=== PATIENT | male | born 1960 | race Caucasian/White ===

== ENCOUNTER 2021-06-17 16:49 | Emergency (ER) | payer BC, SELFPAY ==
[2021-06-17 16:57] VITALS: BP 178/92; PULSE 84; RESP 16; TEMP 37.2; O2SAT 99
--- NOTE | 2021-06-17 17:44 | ED.GENADULT ---
HPI - General Adult General Chief complaint: Skin/Abscess/Foreign Body Stated complaint: left side facial swelling Time Seen by Provider: 06/17/21 17:33 Source: patient and RN notes reviewed Mode of arrival: ambulatory Limitations: no limitations History of Present Illness HPI narrative: Patient presents today complaining of 1.5 to 2-hour swelling of his left lower salivary gland. Denies much pain. States this has happened to him a few times in the past and he has received some steroids to help with the symptoms. No history of salivary gland stones. No recent illness. States he normally sucks on sour candies when this happens as well. MD complaint: Salivary gland swelling Related Data Allergies Allergy/AdvReac Type Severity Reaction Status Date / Time No Known Allergies Allergy Mild Verified 06/17/21 17:24 Review of Systems Review of Systems: CONSTITUTIONAL: Denies body aches, fever, chills, or sweats. EYES: Denies visual changes, redness, or discharge. ENT: Denies rhinorrhea, congestion, sore throat, or otalgia.+ Salivary gland swelling CARDIOVASCULAR: Denies chest pain, palpitations, or edema. RESPIRATORY: Denies cough or dyspnea. GASTROINTESTINAL: Denies abdominal pain, nausea, vomiting, or diarrhea. GENITOURINARY: Denies dysuria or hematuria. SKIN: Denies rash, itching, or wounds. MUSCULOSKELETAL: Denies back pain, joint pain, or myalgia. NEUROLOGIC: Denies headache, numbness, tingling, or weakness. PSYCH: Denies depression or anxiety. [facility] Family History Family History Father Family history of coronary artery disease Other Family history of arthritis Social History Social History Alcohol intake: never Comments At time of signature, I have reviewed and agree with nursing past medical, surgical, social and family history unless otherwise noted. Please see nursing chart for further information. There is no relevant family history pertinent to the presenting complaint Exam Narrative: GENERAL: Well-appearing, well-nourished, and in no acute distress. HEAD: Normocephalic, atraumatic. EYES: EOMI. No redness or drainage. Conjunctivae normal. ENT: Mucous membranes pink and moist. Mild left parotid gland swelling. No firmness, erythema noted. No stones felt within the mouth. No sublingual tenderness. NECK: Normal AROM. Supple. No lymphadenopathy. CHEST: No respiratory distress. EXTREMITIES: Normal range of motion. No edema. SKIN: Warm, dry, no rash. Capillary refill normal. Normal skin turgor. NEURO: No focal deficits. Alert and oriented x3. Gait steady. PSYCH: Normal affect. No signs of depression or anxiety. Course Vital Signs Vital signs: Vital Signs Temperature 98.9 F 06/17/21 16:57 Pulse Rate 84 06/17/21 16:57 Respiratory Rate 16 06/17/21 16:57 Blood Pressure 178/92 H 06/17/21 16:57 Pulse Oximetry 99 06/17/21 16:57 Temperature 98.9 F 06/17/21 16:57 Pulse Rate 84 06/17/21 16:57 Respiratory Rate 16 06/17/21 16:57 Blood Pressure 178/92 H 06/17/21 16:57 Pulse Oximetry 99 06/17/21 16:57 Reviewed. Pt has been instructed to follow up with his PCP regarding his elevated blood pressure today. Medical Decision Making Differential Diagnosis Differential Diagnosis: Sialolithiasis, sialoadenitis, mumps Vital Signs Vital Signs: Vital Signs Temperature 98.9 F 06/17/21 16:57 Pulse Rate 84 06/17/21 16:57 Respiratory Rate 16 06/17/21 16:57 Blood Pressure 178/92 H 06/17/21 16:57 Pulse Oximetry 99 06/17/21 16:57 Temperature 98.9 F 06/17/21 16:57 Pulse Rate 84 06/17/21 16:57 Respiratory Rate 16 06/17/21 16:57 Blood Pressure 178/92 H 06/17/21 16:57 Pulse Oximetry 99 06/17/21 16:57 Critical Care Time Critical Care Time Critical Care Time: No Discharge Plan Discharge Clinical Impression: Sialadenitis
== END 2021-06-17 17:45 | disposition home or self-care (01) ==
PROVIDERS: Emergency Provider Nurse Practitioner
DX: K11.20 Sialoadenitis, unspecified (principal)
CPT/HCPCS: 99213; G0463

== ENCOUNTER 2022-01-26 16:19 | Observation (INO) | payer BC, SELFPAY ==
[2022-01-26] VITALS (20 sets, daily range): BP systolic 104–151; BP diastolic 74–98; PULSE 56–65; RESP 14–18; TEMP 36.4–36.7; O2SAT 96–100; BMI 29.8
--- NOTE | ~2022-01-26 | XR_ITS ---
EXAMINATION: XR chest 1V portable DATE: 01/26/2022 16:42 INDICATION: Dizziness, nausea and vomiting TECHNIQUE: frontal view of the chest was obtained. COMPARISON: None FINDINGS: The lungs are clear with no focal airspace opacities, pulmonary edema, pleural effusion or pneumothor ax. The cardiomediastinal silhouette is normal. Visualized bones and soft tissues are unremarkable. IMPRESSION: 1. No acute cardiopulmonary disease. Reviewed, dictated and finalized at location A.
--- NOTE | ~2022-01-26 | CT_ITS ---
EXAMINATION: CT brain wo con DATE: 01/26/2022 16:42 INDICATION: Dizziness and nausea. Weakness. TECHNIQUE: Computed tomography (CT) of the head was performed without intravenous contrast. Sagittal and coronal reconstructions were performed. The mA was adjusted according to patient size. Iterative reconstruction technique was employed. The dose-length product was 605.33 mGy-cm. COMPARISON: None FINDINGS: No acute intracranial hemorrhage, acute infarction or abnormal extra axial fluid collection. Symmetri c prominence of the sulci consistent with mild age-appropriate diffuse cerebral volume loss. Ventricl es are normal and symmetric. No mass/mass effect. The orbits and mastoid air cells are normal. Mild m ucoperiosteal thickening the bilateral ethmoid and sphenoid sinuses. IMPRESSION: 1. No acute intracranial process. Reviewed, dictated and finalized at location A.
--- NOTE | 2022-01-26 16:24 | ECG_ITS ---
Measurements Intervals [place] Rate: 60 P: 25 AL: 147 QRS: -21 QRSD: 103 T: 6 QT: 427 QTc: 428 Interpretive Statements SINUS RHYTHM NORMAL ECG NO PREVIOUS ECG AVAILABLE FOR COMPARISON Electronically Signed On 01-27-2022 15:54:56 CDT by Kamaljit Carpenter M.D.
[2022-01-26] MEDS: MECLIZINE HCL 25 MG TABLET PO (16:31)
[2022-01-26] MEDS: SODIUM CHLORIDE 0.9% IV 1,000 ML 999 ML IV CONT ×2 (16:31→17:07)
--- NOTE | 2022-01-26 16:32 | ED.WEAKNESS ---
HPI - Weakness General Chief complaint: Weakness Stated complaint: diaphoretic, N/V Time Seen by Provider: 01/26/22 16:24 Source: RN notes reviewed History of Present Illness HPI Narrative: Patient presents emergency department via EMS for dizziness. 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 He states that he had no unilateral numbness or weakness he denies any vision changes chest pain shortness of breath abdominal pain or diarrhea. States that dizziness is worse with moving his head Related Data Home Medications Medication Instructions Recorded Confirmed No Home Medications 01/26/22 01/26/22 Allergies Allergy/AdvReac Type Severity Reaction Status Date / Time No Known Allergies Allergy Mild Verified 01/26/22 16:25 Review of Systems Review of Systems: Gen.: Denies fevers or chills Eyes: Denies eye pain or visual change ENT: Denies congestion Respiratory: Denies shortness of breath or cough CV: Denies chest pain or palpitations GI: Denies abdominal pain reports nausea and vomiting Musculoskeletal: Denies back pain or muscle pain Neuro: Reports dizziness Skin: Denies rash Except as documented, all other systems reviewed and negative [facility] Past Medical History Medical History (Updated 01/26/22 @ 18:45 by Boris Patel DO) Patient denies significant medical history Family History Family History Father Family history of coronary artery disease Other Family history of arthritis Social History Social History (Updated 01/26/22 @ 17:49 by Boris Patel DO) Smoking status: Never smoker Alcohol intake: never Exam Narrative: APPEARANCE: No acute distress, nontoxic, resting in bed HEENT: Normocephalic, atraumatic, OMM, TMs clear bilaterally EYES: PERRL, EOMI NECK: Supple, nontender, full range of motion without pain, no meningismus RESPIRATORY: No respiratory distress, clear to auscultation bilaterally with no rhonchi wheezing or rales CARDIOVASCULAR: RRR s murmur ABDOMINAL: Soft, nontender, nondistended MUSCULOSKELETAL: Moves all extremities. No clubbing, cyanosis or edema. NEURO: A and O ?3, following commands, speech normal, cranial nerves II through XII grossly intact,muscle strength 5 out of 5 bilateral upper and lower extremities, no pronator drift SKIN:: Warm, dry. Normal Color PSYCHIATRIC: Normal affect/mood Course Course Emergency Course: Patient is progressively felt better in the emergency department states that this time he has no dizziness with sitting dizziness only with turning his head to the left patient was able to get up and ambulate with improvement denies any pain at this time no chest pain or shortness of breath abdomen remains soft and nontender. Discussed with Dr. Marques presentation work-up agrees with admission to [facility] Discussed with patient and family results of workup and diagnosis. Discussed need for admission. Patient and family understand and agree to current treatment plan Vital Signs Vital signs: Vital Signs Temperature 97.6 F 01/26/22 16:17 Pulse Rate 62 01/26/22 16:17 Respiratory Rate 17 01/26/22 16:17 Blood Pressure 125/77 01/26/22 16:17 Pulse Oximetry 98 01/26/22 16:17 Oxygen Delivery Room Air 01/26/22 16:17 Temperature 98.0 F 01/26/22 17:36 Pulse Rate 62 01/26/22 18:30 Respiratory Rate 17 01/26/22 18:30 Blood Pressure 138/91 H 01/26/22 18:28 Pulse Oximetry 99 01/26/22 17:15 Oxygen Delivery Room Air 01/26/22 16:17 MDM - Weakness
[2022-01-26 16:34] LABS: Basophils Percent Auto 0.3 % (0.2-1.2); Eosinophils Absolute Auto 0.1 K/mm3 (0-0.3); Eosinophils Percent Auto 0.4 % (0-4.4); Hematocrit 44.4 % (42.0-52.0); Hemoglobin 14.8 g/dL (14.0-18.0); Immature Granulocyte Absolute 0.07 K/mm3 (0.00-0.031); Immature Granulocyte Percent A 0.5 % (0-0.5); Lymphocytes Absolute Auto 2.58 K/mm3 (0.9-3.2); Lymphocytes Percent Auto 18.7 % (18.3-44.2); Mean Corpuscular HGB Conc 33.3 g/dl (32-36); Mean Corpuscular Hemoglobin 29.4 pg (26-34); Mean Corpuscular Volume 88.1 fl (80-100); Mean Platelet Volume 9.9 fl (7.4-10.4); Monocytes Absolute Auto 1.1 K/mm3 (0.1-0.6); Monocytes Percent Auto 8.2 % (2.6-8.5); Neutrophils Percent Auto 71.9 % (45.5-73.1); Platelet Count Result 369 k/mm3 (150-375); Red Blood Count 5.04 M/mm3 (4.6-6.20); Red Cell Distribution Width 13.8 % (11.5-14.5); White Blood Count 13.8 K/mm3 (4.5-10.0)
[2022-01-26 16:45] LABS: Prothrombin Time 12.5 Seconds (11.1-14.7)
[2022-01-26 16:46] LABS: Partial Thromboplastin Time 20.6 SECONDS (22.3-36.8)
[2022-01-26 16:47] LABS: Alanine Aminotransferase 24 U/L (6-50); Albumin Level 4.5 g/dL (3.5-5.1); Alkaline Phosphatase 72 U/L (38-126); Anion Gap 14 mmol/L (8-16); Aspartate Amino Transferase 26 U/L (17-59); Bilirubin,Total 0.6 mg/dL (0.2-1.3); Blood Urea Nitrogen 11 mg/dL (9-20); Calcium 9.2 mg/dL (8.4-10.2); Carbon Dioxide 22 mmol/L (22-30); Chloride 101 mmol/L (98-107); Creatine Kinase 65 U/L (55-170); Estimated Glomerular Filt Rate > 60; Glucose 155 mg/dL (65-110); Lipase 51 U/L (23-300); Potassium 3.2 mmol/L (3.4-5.0); Sodium 137 mmol/L (137-145)
[2022-01-26 16:49] LABS: Lactic Acid Reflex 5.2 mmol/L (0.7-2.0)
[2022-01-26 16:57] LABS: Troponin I < 0.012 ng/mL (0.000-0.034)
[2022-01-26 17:50] LABS: Lactic Acid Reflex 3.4 mmol/L (0.7-2.0)
[2022-01-26 17:52] LABS: SARS-CoV-2 RNA PCR Negative
[2022-01-26 18:29] LABS: Appearance Urine Clear (Clear); Bilirubin Urine Negative (Negative); Color Urine Yellow (Yellow); Glucose Urine UA Negative (Negative); Ketones Urine Negative (Negative); Leukocyte Esterase Ur Negative LEU/UL (Negative); Nitrate Urine Negative (Negative); Protein Urine Trace mg/dL (Negative); Specific Grav Ur 1.025 (1.001-1.035); Urobilinogen Urine 0.2 mg/dL (<2.0)
[2022-01-26 18:31] LABS: Add Urine Microscopic? YES; Blood Urine Trace-Intact (Negative)
[2022-01-26 18:33] LABS: Mucus Urine Few /lpf; Squamous Epithelial Cell Urine Rare /hpf (Few); WBC Urine 0-3 /hpf
[2022-01-26] MEDS: POTASSIUM CHLORIDE 20 MEQ TABLET PO ×2 (18:37→22:06)
[2022-01-26 19:32] LABS: Reflex Lactic Acid Yes or No Add Lactic
[2022-01-26] MEDS: SODIUM CHLORIDE 0.9% IV 1,000 ML 125 ML IV CONT (19:55)
[2022-01-26 20:02] LABS: Lactic Acid 1.4 mmol/L (0.7-2.0)
--- NOTE | 2022-01-26 21:47 | ADMGEN ---
This patient, Markel Sexton, was admitted to [facility] Surg Room 301-01. Patient/family oriented to hospital policies and general routines including ID bracelet, bed and alarms, visiting hours, pain management, procedures, bathroom and other care routines, personal items, smoking policy, room service/diet, and visiting hours. Information on how to activate the Rapid Response Team has been discussed. Patient/Family are encouraged to report perceived risks to care and to ask questions if they do not understand what they are told or what they should do.
--- NOTE | 2022-01-26 21:49 | PM.IMHP ---
H&P: HPI History of Present Illness Date/Time: 01/26/22 21:49 Chief Complaint: Dizziness Narrative: Greater than 30 minutes spent reviewing chart, evaluating, treating, and counseling patient. Anticipate less than 48 hour admission, will admit under observation. 61-year-old male with no significant past medical history presents with dizziness of sudden onset today in the afternoon. 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 He was cleaning some dust on the ceiling and then turned around when all the sudden he states he felt the room spinning. Was severe for a couple of minutes and then calmed down, however was still persistent. Patient was nauseous with episode and eventually vomited once. Patient reports he had a 32 oz regular soda and Powerade for lunch. No other fluid intake. Prior to nausea vomiting episode, patient had normal appetite. Denies blurry vision, ringing in ears, trouble hearing, acute weakness and any of his extremities. Patient denies fevers/chills, shortness of breath, chest pain, palpitations, diarrhea/constipation, trouble urinating, hematuria/dysuria. Patient reports improvement in nausea/vomiting. He reports dizziness only when standing up from lying down, which has improved since arrival to ED. In the ED, vital stable. Labs remarkable for white count of 13.8, potassium of 3.2, lactic acid of 5.2, glucose 155. UA negative for ketones. CT head negative for acute intracranial pathology. Patient received 2 L normal saline bolus in the ED, as well as 20 mEq of potassium. Patient also received 25 mg of meclizine. Review of Systems Review of Systems: Ten point ROS reviewed, negative unless otherwise specified per HPI. [facility] Past Medical History Medical History (Updated 01/26/22 @ 22:03 by Neeraj Garza DO) Patient denies significant medical history Family History Family History Father Family history of coronary artery disease Other Family history of arthritis Social History Social History (Updated 01/26/22 @ 17:49 by Boris Patel DO) Smoking packs per day: 1.5 Smoking cigarettes per day: 30.0 Years smoked: 30 Smoking pack-years: 45.00 Smoking status: Former smoker Tobacco type: cigarettes Alcohol intake: former Substance use: never Living arrangements: alone Occupation/Education: occupation Gender identity (if verbalized by the patient): Male Sexual Orientation (if Verbalized by the Patient): Straight or Heterosexual Spiritual care concerns: No Agree to blood products: No Meds Home Medications and Allergies Home Medications Medication Instructions Recorded Confirmed Type No Home Medications 01/26/22 01/26/22 History Allergies Allergy/AdvReac Type Severity Reaction Status Date / Time No Known Allergies Allergy Mild Verified 01/26/22 16:25 Vital Signs Vital Signs - 24 hr 01/26/22 16:17 01/26/22 16:22 01/26/22 16:46 Temperature 97.6 F Pulse Rate 62 64 56 L Respiratory Rate 17 Blood Pressure 125/77 113/74 Pulse Oximetry 98 Oxygen Delivery Room Air 01/26/22 16:48 01/26/22 16:50 01/26/22 17:10 Temperature Pulse Rate 61 63 60 Respiratory Rate 14 Blood Pressure 104/92 H 120/81 126/83 Pulse Oximetry 100 Oxygen Delivery 01/26/22 17:36 01/26/22 16:44 01/26/22 16:45 Temperature 98.0 F Pulse Rate 60 57 L Respiratory Rate 17 14 Blood Pressure Pulse Oximetry 100 100 Oxygen Delivery 01/26/22 16:50 01/26/22 17:00 01/26/22 17:15 Temperature Pulse Rate 63 60 59 L Respiratory Rate 18 16 Blood Pressure 104/92 H Pulse Oximetry 99 Oxygen Delivery 01/26/22 17:30 01/26/22 17:45 01/26/22 18:00 Temperature Pulse Rate 63 62 65 Respiratory Rate 18 16 17 Blood Pressure Pulse Oximetry Oxygen Delivery 01/26/22 18:16 01/26/22 18:28 01/26/22 18:30 Temperature Pulse Rate 64 65 62 Respiratory Rate 14 16 1
--- NOTE | 2022-01-27 | ECG_ITS ---
Measurements Intervals [place] Rate: 64 P: 23 GA: 147 QRS: -37 QRSD: 102 T: 6 QT: 388 QTc: 401 Interpretive Statements SINUS RHYTHM MARKED LEFT AXIS DEVIATION [QRS AXIS < -30], PROBABLY SLIGHTLY DIFFERENT LEAD POSITION COMPARED TO ECG 01/26/2022 16:30:37 LEFT-AXIS DEVIATION NOW PRESENT Electronically Signed On 01-27-2022 16:26:36 CDT by Markel Klein M.D.
[2022-01-27 06:00] VITALS: BP 154/90; PULSE 66; RESP 18; TEMP 36.8; O2SAT 95
[2022-01-27 06:45] LABS: Basophils Percent Auto 0.2 % (0.2-1.2); Eosinophils Absolute Auto 0.1 K/mm3 (0-0.3); Eosinophils Percent Auto 0.9 % (0-4.4); Hematocrit 42.9 % (42.0-52.0); Immature Granulocyte Absolute 0.03 K/mm3 (0.00-0.031); Immature Granulocyte Percent A 0.3 % (0-0.5); Lymphocytes Absolute Auto 2.26 K/mm3 (0.9-3.2); Lymphocytes Percent Auto 20.3 % (18.3-44.2); Mean Corpuscular HGB Conc 32.6 g/dl (32-36); Mean Corpuscular Hemoglobin 29.8 pg (26-34); Mean Corpuscular Volume 91.3 fl (80-100); Mean Platelet Volume 10.3 fl (7.4-10.4); Monocytes Percent Auto 9.2 % (2.6-8.5); Neutrophils Absolute Auto 7.7 K/mm3 (1.3-6.7); Neutrophils Percent Auto 69.1 % (45.5-73.1); Platelet Count Result 303 k/mm3 (150-375); Red Cell Distribution Width 14.1 % (11.5-14.5); White Blood Count 11.1 K/mm3 (4.5-10.0)
[2022-01-27 06:54] LABS: Lactic Acid Reflex 0.9 mmol/L (0.7-2.0)
[2022-01-27 06:59] LABS: Anion Gap 9 mmol/L (8-16); Blood Urea Nitrogen 10 mg/dL (9-20); Calcium 8.1 mg/dL (8.4-10.2); Carbon Dioxide 24 mmol/L (22-30); Chloride 105 mmol/L (98-107); Estimated CRCL calculation 94 ml/min; Estimated Glomerular Filt Rate > 60; Glucose 94 mg/dL (65-110); Potassium 3.7 mmol/L (3.4-5.0); Sodium 138 mmol/L (137-145)
[2022-01-27 08:48] LABS: Hemoglobin A1C 5.6 % (<5.7)
[2022-01-27 14:00] VITALS: BP 161/92; PULSE 68; RESP 20; TEMP 36.9; O2SAT 100
[2022-01-27 14:32] VITALS: BP 162/100
--- NOTE | 2022-01-27 15:03 | PM.DS ---
DS: Admitting Diagnosis Discharge Date 01/27/2022 Admitting Diagnosis vertigo DS: Discharge Diagnosis Discharge Diagnosis (1) Dizziness: Code(s): R42 - Dizziness and giddiness Status: Acute Assessment and Plan: Barney to be most consistent with peripheral vertigo, likely worsened due to acute dehydration resolved following meclizine patient was adequately rehydrated patient denied chest pain, shortness of breath, exercise intolerance. EKG was sinus rhythm orthostatic vital signs negative continue p.r.n. meclizine as needed follow-up with PCP for further monitoring. If persistent/no improvement with meclizine, could consider vestibular rehab (2) Dehydration: Code(s): E86.0 - Dehydration Status: Acute Assessment and Plan: patient working outdoors in the heat with decreased p.o. intake rehydrated with IV fluids patient able to tolerate p.o. intake discussed importance of maintaining adequate hydration, especially in high heat conditions or with increased exertion (3) Acidosis, lactic: Code(s): E87.2 - Acidosis Status: Acute Assessment and Plan: most likely secondary to dehydration resolved with IV fluids (4) Hyperglycemia: Code(s): R73.9 - Hyperglycemia, unspecified Status: Acute Assessment and Plan: suspect this to be hemoconcentrated secondary to dehydration fasting glucose following rehydration was 94 A1c is 5.6 (5) Hypokalemia: Code(s): E87.6 - Hypokalemia Status: Acute Assessment and Plan: resolved. Potassium was supplemented and remained stable (6) Elevated blood pressure reading: Code(s): R03.0 - Elevated blood-pressure reading, without diagnosis of hypertension Status: Acute Assessment and Plan: blood pressures were slightly fluctuant. On day of discharge, were slightly elevated in the 150s-160 systolic patient admitted to being anxious regarding his hospitalization instructed to monitor blood pressures at home 3-4 times per week and follow-up with PCP in 1 week for BP check DS: Summary Hospital Course Hospital Course: date of admission: 01/26/2022 date of discharge: 01/27/2022 Markel Sexton is a healthy 61-year-old male who presented to the emergency department on 01/26/2022 with complaints of dizziness. 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 On presentation to the ED, his vital signs were stable, white blood cell count slightly elevated at 13.8, potassium 3.2, troponin negative, lactic acid was 5.2, and improved with hydration, CXR showed no acute findings, and head CT showed no acute intracranial process. He was admitted to the hospitalist service for further evaluation and management. Findings felt to be consistent with peripheral vertigo and he had symptomatic improvement following meclizine. He was appropriately rehydrated and lactic acidosis resolved. Orthostatic vital signs were negative. He was ambulating independently and feeling back to his usual state of health. he did have elevated blood pressure readings, but endorsed anxiety related to hospitalization. He was instructed to monitor his blood pressures at home intermittently and will follow-up with his PCP in 1 week for hospital follow-up in BP check. Given the patient's overall improvement, he was determined to no longer require inpatient care and was discharged in hemodynamically stable condition on 01/27/2022. Discussed with the patient and his who was present for the encounter regarding worrisome signs and symptoms for which to return. He will continue meclizine as needed and he was educated on this medication. Status at Discharge Functional status at discharge: independent ambulation Overall status at discharge: p
[2022-01-27 15:05] VITALS: BP 140/102
[2022-01-27 15:06] VITALS: BP 161/92
== END 2022-01-27 15:25 | disposition home or self-care (01) ==
LOC: ANHED 18:45 → ANH3MEDSUR 20:43
PROVIDERS: Internal Medicine; Admitting Provider Student in an Organized Health Care Education/Training Program; Emergency Provider Emergency Medicine; PCP Family Medicine; Visit Provider Family Medicine
DX: R42 Dizziness and giddiness (principal); E86.0 Dehydration; E87.2 Acidosis; R73.9 Hyperglycemia, unspecified; E87.6 Hypokalemia; R03.0 Elevated blood-pressure reading, without diagnosis of hypertension; Z20.822 Contact with and (suspected) exposure to COVID-19; Z82.49 Family history of ischemic heart disease and other diseases of the circulatory system; Z87.891 Personal history of nicotine dependence
CPT/HCPCS: 36415; 70450; 71045; 80048; 80053; 81001; 82550; 83036; 83605; 83690; 83735; 84484; 85025; 85610; 85730; 87040; 93005; 96360; 96361; 99285; A9270; C9803; G0378; J1650; J7030; U0003; U0005

== ENCOUNTER 2022-11-04 10:46 | Outpatient (CLI) | payer BC, SELFPAY ==
[2022-11-04 12:30] LABS: Hematocrit 44.9 % (42.0-52.0); Hemoglobin 15.1 g/dL (14.0-18.0); Mean Corpuscular HGB Conc 33.6 g/dl (32-36); Mean Corpuscular Volume 89.1 fl (80-100); Mean Platelet Volume 9.8 fl (7.4-10.4); Platelet Count Result 415 k/mm3 (150-375); Red Blood Count 5.04 M/mm3 (4.6-6.20); Red Cell Distribution Width 13.6 % (11.5-14.5); White Blood Count 8.3 K/mm3 (4.5-10.0)
[2022-11-04 12:32] LABS: Appearance Urine Clear (Clear); Bilirubin Urine Negative (Negative); Blood Urine Negative (Negative); Color Urine Yellow (Yellow); Glucose Urine UA Negative (Negative); Ketones Urine Negative (Negative); Leukocyte Esterase Ur Negative LEU/UL (NEGATIVE); Nitrate Urine Negative (Negative); Protein Urine Negative (Negative); Specific Grav Ur 1.018 (1.001-1.035); pH Urine 6.5 (5.0-9.0)
[2022-11-04 12:40] LABS: Alanine Aminotransferase 18 U/L (6-50); Albumin Level 4.4 g/dL (3.5-5.1); Alkaline Phosphatase 68 U/L (38-126); Anion Gap 9 mmol/L (8-16); Aspartate Amino Transferase 22 U/L (17-59); Bilirubin,Total 0.6 mg/dL (0.2-1.3); Blood Urea Nitrogen 16 mg/dL (9-20); Calcium 8.2 mg/dL (8.4-10.2); Carbon Dioxide 27 mmol/L (22-30); Chloride 104 mmol/L (98-107); Cholesterol 173 mg/dL (0-200); Estimated Glomerular Filt Rate > 60; Glucose 99 mg/dL (65-110); HDL Direct 33 mg/dL; Potassium 3.6 mmol/L (3.4-5.0); Sodium 140 mmol/L (137-145); Triglycerides 55 mg/dL (<150)
[2022-11-04 12:51] LABS: LDL Cholesterol Direct 124 mg/dL
[2022-11-04 13:11] LABS: Prostate Specific Antigen 0.8 ng/mL (< OR = 4.0)
[2022-11-04 13:32] LABS: Add Urine Microscopic? NO
== END 2022-11-04 10:47 | disposition home or self-care (01) ==
LOC: ANHLAB 10:47
PROVIDERS: PCP Family Medicine; Visit Provider Physician Assistant
DX: Z00.00 Encounter for general adult medical examination without abnormal findings (principal); I10 Essential (primary) hypertension; R35.1 Nocturia
CPT/HCPCS: 36415; 80053; 80061; 81003; 84153; 84443; 85027

== ENCOUNTER 2023-05-26 12:04 | Outpatient (CLI) | payer BC, SELFPAY ==
[2023-05-26 12:27] LABS: Alanine Aminotransferase 21 U/L (6-50); Albumin Level 4.6 g/dL (3.5-5.1); Alkaline Phosphatase 69 U/L (38-126); Anion Gap 13 mmol/L (8-16); Aspartate Amino Transferase 23 U/L (17-59); Bilirubin,Total 0.7 mg/dL (0.2-1.3); Blood Urea Nitrogen 14 mg/dL (9-20); Calcium 8.6 mg/dL (8.4-10.2); Carbon Dioxide 25 mmol/L (22-30); Chloride 99 mmol/L (98-107); Estimated Glomerular Filt Rate > 60; Glucose 106 mg/dL (65-110); Potassium 3.7 mmol/L (3.4-5.0); Sodium 137 mmol/L (137-145)
== END 2023-05-26 12:05 | disposition home or self-care (01) ==
LOC: ANHLAB 12:05
PROVIDERS: PCP Family Medicine; Visit Provider Family Medicine
DX: I10 Essential (primary) hypertension (principal)
CPT/HCPCS: 36415; 80053

== ENCOUNTER 2023-12-08 09:30 | Outpatient (CLI) | payer BC, SELFPAY ==
[2023-12-08 10:39] LABS: Hematocrit 44.4 % (42.0-52.0); Hemoglobin 14.8 g/dL (14.0-18.0); Mean Corpuscular HGB Conc 33.3 g/dl (32-36); Mean Corpuscular Hemoglobin 29.4 pg (26-34); Mean Corpuscular Volume 88.1 fl (80-100); Mean Platelet Volume 10.1 fl (7.4-10.4); Platelet Count Result 336 k/mm3 (150-375); Red Blood Count 5.04 M/mm3 (4.6-6.20); Red Cell Distribution Width 13.6 % (11.5-14.5); White Blood Count 8.6 K/mm3 (4.5-10.0)
[2023-12-08 10:51] LABS: Alanine Aminotransferase 14 U/L (6-50); Albumin Level 4.4 g/dL (3.5-5.1); Alkaline Phosphatase 63 U/L (38-126); Anion Gap 10 mmol/L (4-12); Aspartate Amino Transferase 17 U/L (17-59); Bilirubin,Total 0.6 mg/dL (0.2-1.3); Blood Urea Nitrogen 10 mg/dL (9-20); Calcium 8.6 mg/dL (8.4-10.2); Carbon Dioxide 25 mmol/L (22-30); Chloride 106 mmol/L (98-107); Cholesterol 163 mg/dL (0-200); Estimated Glomerular Filt Rate > 60; Glucose 110 mg/dL (65-110); HDL Direct 31 mg/dL; Potassium 3.6 mmol/L (3.4-5.0); Sodium 141 mmol/L (137-145); Triglycerides 79 mg/dL (<150)
[2023-12-08 11:01] LABS: LDL Cholesterol Direct 119 mg/dL
[2023-12-08 11:21] LABS: Prostate Specific Antigen 0.6 ng/mL (< OR = 4.0)
== END 2023-12-08 09:31 | disposition home or self-care (01) ==
LOC: ANHLAB 09:32
PROVIDERS: PCP Family Medicine; Visit Provider Family Medicine
DX: Z00.00 Encounter for general adult medical examination without abnormal findings (principal); I10 Essential (primary) hypertension; R35.1 Nocturia; E78.5 Hyperlipidemia, unspecified
CPT/HCPCS: 36415; 80053; 80061; 84153; 84443; 85027

== ENCOUNTER 2024-12-22 11:36 | Outpatient (CLI) | payer OTHER, SELFPAY ==
[2024-12-22 11:55] LABS: Hematocrit 46.7 % (42.0-52.0); Hemoglobin 15.5 g/dL (14.0-18.0); Mean Corpuscular HGB Conc 33.2 g/dl (32-36); Mean Corpuscular Hemoglobin 29.3 pg (26-34); Mean Corpuscular Volume 88.3 fl (80-100); Platelet Count Result 322 k/mm3 (150-375); Red Blood Count 5.29 M/mm3 (4.6-6.20); Red Cell Distribution Width 13.7 % (11.5-14.5); White Blood Count 9.4 K/mm3 (4.5-10.0)
[2024-12-22 12:24] LABS: Add Urine Microscopic? YES; Appearance Urine Cloudy (Clear); Bacteria Urine None Seen /hpf; Bilirubin Urine 1+ (Negative); Blood Urine Negative (Negative); Color Urine Dark Yellow (Yellow); Glucose Urine UA Negative (Negative); Ketones Urine Trace mg/dL (Negative); Leukocyte Esterase Ur Trace LEU/UL (Negative); Mucus Urine Present /lpf; Need Manual Microscopic Reviewed; Nitrate Urine Negative (Negative); Protein Urine Trace mg/dL (Negative); Specific Grav Ur 1.021 (1.001-1.035); Squamous Epithelial Cell Urine None Seen /hpf (Few); WBC Urine 0-5 /hpf (0-3)
[2024-12-22 15:15] LABS: Alanine Aminotransferase 25 U/L (6-50); Albumin Level 4.3 g/dL (3.5-5.1); Alkaline Phosphatase 53 U/L (38-126); Anion Gap 9 mmol/L (4-12); Aspartate Amino Transferase 27 U/L (17-59); Bilirubin,Total 0.5 mg/dL (0.2-1.3); Blood Urea Nitrogen 10 mg/dL (9-20); Calcium 8.8 mg/dL (8.4-10.2); Carbon Dioxide 25 mmol/L (22-30); Chloride 102 mmol/L (98-107); Cholesterol 214 mg/dL (0-200); Estimated Glomerular Filt Rate > 60; Glucose 102 mg/dL (65-110); HDL Direct 37 mg/dL; Sodium 136 mmol/L (137-145); Total Protein 7.2 g/dL (6.3-8.2); Triglycerides 94 mg/dL (<150)
[2024-12-22 15:26] LABS: LDL Cholesterol Direct 139 mg/dL
[2024-12-22 15:46] LABS: Prostate Specific Antigen 0.7 ng/mL (< OR = 4.0)
== END 2024-12-22 11:37 | disposition home or self-care (01) ==
PROVIDERS: PCP Family Medicine; Visit Provider Family Medicine
DX: Z00.00 Encounter for general adult medical examination without abnormal findings (principal); E78.5 Hyperlipidemia, unspecified; I10 Essential (primary) hypertension; R35.1 Nocturia
CPT/HCPCS: 36415; 80053; 80061; 81001; 84153; 84443; 85027